=== PATIENT | male | born 1965 | race Caucasian/White ===

== ENCOUNTER 2018-04-16 18:50 | Emergency (ER) | payer BC ==
[~2018-04-16] VITALS: Ht 195.6 cm; Wt 79.4 kg
[2018-04-16 19:04] VITALS: BP 122/79; Ht 195.6 cm; Wt 79.4 kg
== END 2018-04-16 20:56 | disposition home or self-care (01) ==
LOC: ED 18:50
DX: S91.301A Unspecified open wound, right foot, initial encounter (principal); W45.8XXA Other foreign body or object entering through skin, initial encounter; Y93.89 Activity, other specified; Y92.89 Other specified places as the place of occurrence of the external cause; Y99.8 Other external cause status
CPT/HCPCS: J1885